=== PATIENT | female | born 1935 | race Caucasian/White ===

== ENCOUNTER 2017-03-28 14:58 | Emergency (ER) | payer OTHER ==
[~2017-03-28] VITALS: Ht 165.1 cm; Wt 67.6 kg
[2017-03-28 15:06] VITALS: BP_SYST 155
--- NOTE | 2017-03-28 15:07 | NUR ---
PATIENT BROUGHT IN BLS COMING [facility] WITH A VALID 5150 HOLD REQUESTING MEDICAL CLEARANCE FOR SUICIDAL IDEATION AND FAILURE TO THRIVED. PLACED IN ROOM 4, ENDORSED CARE TO [place].
--- NOTE | 2017-03-28 15:17 | NUR ---
patient moved to bed 5
--- NOTE | 2017-03-28 15:19 | NUR ---
EKG performed at by Alfred. Physician given copy of EKG for review.
--- NOTE | 2017-03-28 15:20 | NUR ---
Patient brought in by BLS from [facility] for Suicidal ideation. Report recieved from son is patient has lost 22 pounds in the last month and states that she wants to jump out of wheelchair and hit her head. Family does not feel that they can keep her safe. Patient appears to be anxious and shaky. Patient states that she does not want to hurt herself when interviewed and does not have a plan. [facility] Patient is calm at thie time. Will continue to monitor. Addendum: 03/28/17 at 1611 by [email or web address] Suicide Risk/Lethality Admission Assessment completed and signed by charge nurse and . Placed in chart.
--- NOTE | 2017-03-28 15:22 | NUR ---
Patient placed on suicide precautions. Patient placed in room within close proximity to nurses' station for closer observation and monitoring. All clothing removed, placed in hospital gown. Metal detector wand used to further screen patient of any potential hazardous belongings. All belongings inventoried, placed in bags and removed from room. Cabinets locked. BP and pulse oximeter cords, and monitoring analyst leads removed.
--- NOTE | 2017-03-28 15:23 | NUR ---
ER at bedside examining patient.
[2017-03-28 15:44] LABS: BASOPHILS % (AUTO) 0.4 % (0.0-2.0); EOSINOPHILS # (AUTO) 0.1 K/uL (0.0-0.4); EOSINOPHILS % (AUTO) 0.5 % (0.0-4.0); HEMATOCRIT 38.4 % (36-48); HEMOGLOBIN 12.7 g/dL (12.0-16.0); LYMPHOCYTES # (AUTO) 1.9 K/uL (1.0-5.5); LYMPHOCYTES % (AUTO) 17.3 % (20.5-51.5); MEAN CORPUSCULAR HEMOGLOBIN 31 pg (27-31); MEAN CORPUSCULAR HGB CONC 33 % (32-36); MEAN CORPUSCULAR VOLUME 93 fL (79.0-98.0); MONOCYTES % (AUTO) 9.1 % (1.7-9.3); NEUTROPHILS % (AUTO) 72.7 % (40.0-70.0); PLATELET COUNT (AUTO) 325 K/uL (130-430); RED BLOOD CELL COUNT(AUTO) 4.14 MIL/uL (4.2-6.2); RED CELL DISTRIBUTION WIDTH 13.6 % (9.0-15.0)
[2017-03-28] MEDS: LORazepam 2 MG/ML VIAL (FOR ER USE) IVP ONE (15:51)
[2017-03-28 15:52] LABS: ANION GAP 8 (5-15); CALCIUM 10.3 mg/dL (8.4-11.0); CHLORIDE 104 mmol/L (98-107); CREATININE 0.95 mg/dL (0.55-1.30); GLUCOSE 90 mg/dL (70-99); SODIUM SERUM 137 mmol/L (136-145); UREA NITROGEN, BLOOD 10 mg/dL (8-21)
[2017-03-28 15:53] LABS: PROTHROMBIN TIME 9.9 SECS (9.5-12.5)
--- NOTE | 2017-03-28 15:53 | NUR ---
Patient medicated per md orders. Patient tolerated well.
[2017-03-28 16:09] LABS: ALANINE AMINOTRANSFERASE 25 U/L (12-78); ALBUMIN 3.7 g/dL (3.4-4.8); ASPARTATE AMINOTRANSFERASE 21 U/L (10-37); FREE T4 (FREE THYROXINE) 0.8 ng/dL (0.6-1.6); TOTAL BILIRUBIN 0.3 mg/dL (0.0-1.0)
[2017-03-28 16:10] LABS: ALCOHOL, BLOOD < 3 mg/dL (<10)
[2017-03-28 16:50] LABS: BARBITURATE, URINE NEGATIVE (NEG <=200)
[2017-03-28 16:51] LABS: BENZODIAZEPINE, URINE POSITIVE (NEG <=150); CANNABINOID, URINE NEGATIVE (NEG <=50); COCAINE, URINE NEGATIVE (NEG <=150); METHAMPHETAMINES SCREEN,URINE NEGATIVE (NEG <=500); OPIATE, URINE NEGATIVE (NEG <=100); PHENCYCLIDINE SCREEN,URINE POSITIVE (NEG <=25); UR TRICYCLIC ANTIDEPRESSANTS NEGATIVE (NEG <=300); URINE AMPHETAMINE POSITIVE (NEG <=500); URINE METHADONE NEGATIVE (NEG <=200); URINE OXYCODONE SCREEN NEGATIVE (NEG <=100); URINE PROPOXYPHENE SCREEN NEGATIVE (NEG <=300)
[2017-03-28 16:52] LABS: BILIRUBIN,URINE NEGATIVE (NEGATIVE); BLOOD, URINE 1+ (NEGATIVE); CLARITY/URINE HAZY (CLEAR); COLOR,URINE YELLOW (YELLOW); GLUCOSE,URINE NEGATIVE (NEGATIVE); KETONES,URINE 1+ (NEGATIVE); LEUKOCYTE ESTERASE ,URINE TRACE (NEGATIVE); NITRITE, URINE NEGATIVE (NEGATIVE); PROTEIN URINE 1+ (NEGATIVE); UROBILINOGEN,URINE 0.2 (0.2-1.0)
[2017-03-28 16:58] LABS: BACTERIA,URINE FEW /HPF (None Seen); FINE GRANULAR CASTS,URINE 0-10 /LPF (None Seen); HYALINE CASTS, URINE 0-10 /LPF (None Seen); MUCUS,URINE 1+ /LPF (None Seen); RBC,URINE 0-3 /HPF (0-3)
--- NOTE | 2017-03-28 17:00 | NUR ---
Patient is resting. Chest rise and fall noted. Son is at bedside.
[2017-03-28] MEDS: CIPROFLOXACIN HCL 500 MG TABLET PO ONE (17:38)
[2017-03-28 18:37] VITALS: BP_SYST 142
--- NOTE | 2017-03-28 18:37 | NUR ---
Patient to be transferred to [facility]. Is being transferred due to higher level of care. Receiving facility has accepting physician and available space. ER physician has signed transfer form. Patient or responsible constitution party has agreed to transfer and signed form. Patient belongings inventoried and will be sent with patient. Copy of nursing notes, lab reports, EKG, Physicians Orders and X-rays to be sent with patient. Report called to Cassandra at receiving facility. Receiving physician is Dr. Zhang. [facility] is here for transfer
== END 2017-03-28 18:37 ==
LOC: SED 14:58
DX: N39.0 Urinary tract infection, site not specified (principal); Z86.59 Personal history of other mental and behavioral disorders
CPT/HCPCS: 36415; 71045; 74018; 80053; 80307; 81000; 82140; 83605; 83880; 84439; 84484; 85025; 85610; 87040; 87086; 93005; 96374; 99285; G0482; J2060